=== PATIENT | female | born 1960 | race Caucasian/White ===

== ENCOUNTER → 2021-03-27 11:16 | Outpatient (BNVA) | payer OTHER, SELFPAY | PROVIDERS: PCP Registered Nurse; Visit Provider Registered Nurse | DX: Z00.00 Encounter for general adult medical examination without abnormal findings (principal); Z13.6 Encounter for screening for cardiovascular disorders | CPT/HCPCS: 80053; 80061; 85025 ==

== ENCOUNTER 2021-04-10 13:36 | Outpatient (CLI) | payer OTHER, SELFPAY ==
--- NOTE | 2021-04-10 14:00 | MM_ITS ---
WS: [id number] Bilateral screening digital mammogram, 04/10/2021 Clinical Data: Z12.31 - Encounter for screening mammogram for malignant ... Comparison: None. Findings: The breast parenchymal pattern shows heterogeneous density. No spiculated masses or clustered calcifi cations are seen. There are no secondary signs of carcinoma. Minimal markers are on both breasts. MM/[place] [id number] Impression: 1. Negative bilateral mammogram with no prior exam for review. 2. Recommend annual screening mammograms. BIRADS: 1-Negative FOLLOW UP: 1 Year Follow-up The CAD battery checker was used.
== END 2021-04-10 13:37 | disposition home or self-care (01) ==
LOC: RADSHAW 13:41
PROVIDERS: PCP Registered Nurse; Visit Provider Registered Nurse
DX: Z12.31 Encounter for screening mammogram for malignant neoplasm of breast (principal)
CPT/HCPCS: 77067

== ENCOUNTER → 2022-02-26 10:27 | Outpatient (BNVA) | payer OTHER, SELFPAY | PROVIDERS: PCP Registered Nurse; Visit Provider Registered Nurse | DX: Z00.00 Encounter for general adult medical examination without abnormal findings (principal) | CPT/HCPCS: 80053; 80061; 85025 ==

== ENCOUNTER 2022-04-20 13:35 | Outpatient (CLI) | payer OTHER, SELFPAY ==
--- NOTE | 2022-04-20 14:00 | MM_ITS ---
WS: [id number] BILATERAL 3D TOMOSYNTHESIS DIGITAL SCREENING MAMMOGRAPHY WITH CAD CLINICAL INFORMATION: Z12.31 - Encounter for screening mammogram for malignant ... HISTORY: Screening mammogram. No current complaints. COMPARISON: April 10, 2021 TECHNIQUE: Bilateral CC and MLO views. FINDINGS: The breasts are composed of heterogeneous fibroglandular density tissue, which can limit the detectio n of small underlying mass lesions. No suspicious mass, asymmetry, calcifications, or architectural d istortion. No evidence of malignancy. Punctate calcifications. Vascular calcification. MM/[place] [id number] IMPRESSION: BI-RADS: 2-Benign FOLLOW UP: 1 Year Follow-up Recommend return to annual screening mammography.
== END 2022-04-20 13:36 | disposition home or self-care (01) ==
LOC: RAD 13:37
PROVIDERS: PCP Registered Nurse; Visit Provider Registered Nurse
DX: Z12.31 Encounter for screening mammogram for malignant neoplasm of breast (principal)
CPT/HCPCS: 77063; 77067

== ENCOUNTER 2023-02-03 08:11 | Outpatient (CLI) | payer OTHER, SELFPAY ==
--- NOTE | 2023-02-03 08:15 | US_ITS ---
WS: [id number] ULTRASOUND SOFT TISSUES suprapubic abdominal wall. HISTORY: R22.9 - Localized swelling, mass and lump, unspecified COMPARISON: None available. TECHNIQUE: 2-D and color Doppler imaging is submitted. In the region of clinical concern, LEFT suprapubic location there is a hypoechoic area which does apple ear to peristalse. Suspicious for an abdominal wall hernia which changes size. There is no obstructio n. IMPRESSION: 1. Palpable area along the anterior LEFT suprapubic abdominal wall appears to be a hernia containing a peristalsing loop of bowel. Recommend follow-up CT pelvis for more definitive evaluation.
== END 2023-02-03 08:12 | disposition home or self-care (01) ==
PROVIDERS: PCP Registered Nurse; Visit Provider Registered Nurse
DX: R19.04 Left lower quadrant abdominal swelling, mass and lump (principal)
CPT/HCPCS: 76882

== ENCOUNTER → 2023-04-07 09:42 | Day surgery (SDC) | payer MEDICARE, OTHER, SELFPAY ==
[2023-04-07] VITALS (11 sets, daily range): BP systolic 134–148; BP diastolic 60–91; PULSE 64–88; RESP 16–20; TEMP 36.1–36.8; O2SAT 96–99; BMI 26.2
--- NOTE | 2023-04-07 06:37 | P.HP_ITS ---
Same Day Surgery H&P Indication for Procedure/HPI DATE OF PROCEDURE: April 07, 2023 CHIEF COMPLAINT/INDICATIONFOR SURGICAL PROCEDURE: left inguinal hernia PREOP DIAGNOSIS: left inguinal hernia PLANNED PROCEDURE: Operation Date: 04/07/23 11:25 Proposed Procedures p 27194 lap poss open left inguinal hernia 26747,K40.9(Left) - Papi Paige MD Medications/Allergies* Home Medications Medication Instructions Recorded Confirmed Type No Known Home Medications 03/27/21 04/06/23 History Allergies/Adverse Reactions Allergy/AdvReac Type Severity Reaction Status Date / Time povidone-iodine Allergy Unknown Verified 02/09/23 09:55 [From Betadine] Pertinent History/Comorbid Conditions* Medical History (Updated 02/09/23 @ 11:36 by Papi Paige MD) Family history of breast cancer in sister Family History (Updated 02/26/22 @ 09:16 by Mary Roth LPN) Sister Heart disease Father Cancer Sister breast cancer Social History Smoking and tobacco/nicotine status: current every day tobacco/nicotine user e- cigarettes E-Cigarette Details: vaporizer device and with nicotine Alcohol intake: never Substance/Drug Use: never Adopted: No Caregiver/support person: No Lives independently: No Household members: spouse Marital status: service: No Current occupational status: retired Sexually active: Yes Do you think of yourself as: Straight/Heterosexual Current gender identity: Female Pertinent Exam Findings alert, oriented x 3, clear to auscultation bilaterally, regular rate & rhythm and operative site marked Recommendations Surgery/Procedure today Coding Level of Care Code Acute Code for Chg Fwd Diagnoses
--- NOTE | 2023-04-07 10:17 | ECG_ITS ---
[facility] Test Date: 2023-04-07 Pat Name: Steffi Vela Department: Room: Gender: Female [employer]aking [employer] Worker: : 1960 Requested By: Parth Hernandez Order Number: [id number] Tung MD: Xin Crawford M.D. Measurements Intervals [place] Rate: 70 P: 66 AL: 175 QRS: 29 QRSD: 82 T: 51 QT: 390 QTc: 421 Interpretive Statements SINUS RHYTHM No previous ECG available for comparison Electronically Signed On 04-08-2023 0:50:58 [employer]IST[employer]ORNEY [employer]AL by Xin Crawford M.D. [id number]
[2023-04-07] MEDS: midazolam 1 mg/mL INJ 2 mL 2 MG IVP (11:07)
[2023-04-07] MEDS: scopolamine 1.5 Patch 1 PATCH TRANSDERMA (11:17)
[2023-04-07] MEDS: ceFAZolin 2,000 MG in sodium chloride 0.9% (plus) 50 ML 100 MG IV (12:35)
--- NOTE | 2023-04-07 13:33 | ANES.PREANE2 ---
Pre-Anesthetic Assessment Height/Weight: Height 1.63 m Weight 69.4 kg Temp Pulse Resp BP Pulse Ox O2 Del Method 98.2 F 73 18 148/74 96 Room Air 04/07/23 10:03 04/07/23 10:03 04/07/23 10:03 04/07/23 10:03 04/07/23 10:03 04/07/23 10:08 Preop Diagnosis: left inguinal hernia Operation Date: 04/07/23 11:25 Proposed Procedures p 54626 lap poss open left inguinal hernia 75964,K40.9(Left) - Papi Paige MD Familial anesthetic complications: none Was Beta Carol taken within 24 hours: N/A Was Clonidine taken within 24 hours: N/A Last intake: Intake Last Liquid Date 04/07/23 Last Liquid Time 03:00 Last Solid Date 04/06/23 Last Solid Time 19:30 Social Tobacco (vapes) and No alcohol Exam alert, oriented x 3, clear to auscultation bilaterally and regular rate & rhythm Airway Submandibular: within normal limits Cervical ROM: within normal limits Mallampati: Class II Dentition: full GI Gastroesophageal Reflux Disease Anesthetic Plan ASA status: 2 Anesthesia: General Medications/Allergies Home Medications Medication Instructions Recorded Confirmed Last Taken Type No Known Home Medications 03/27/21 04/06/23 Unknown History Allergies Allergy/AdvReac Type Severity Reaction Status Date / Time povidone-iodine Allergy Unknown Verified 02/09/23 09:55 [From Betadine] Current Medications Generic Name Dose Route Start Last Admin Trade Name Freq PRN Reason Stop Dose Admin Midazolam HCl 2 mg 04/07/23 09:47 04/07/23 11:07 Midazolam 1 Mg/Ml Inj 2 Ml IVP 2 mg ONCE PRN Administration Preop Anxiety FOR[facility], [facility] Anesthesia Medical History Family history of breast cancer in sister Family History Father Heart disease Sister Cancer breast cancer Social History Smoking and tobacco/nicotine status: current every day tobacco/nicotine user e-cigarettes E-Cigarette Details: vaporizer device and with nicotine Alcohol intake: never Substance/Drug Use: never Adopted: No Caregiver/support person: No Lives independently: No Household members: spouse Marital status: service: No Current occupational status: retired Sexually active: Yes Do you think of yourself as: Straight/Heterosexual Current gender identity: Female Data Anesthesia Cardiac Studies: No Data to Display
[2023-04-07] MEDS: lidocaine-epi 1% PF 1:200,000 30 mL SDV INJECTION (14:53)
[2023-04-07] MEDS: BUPivacaine 0.25% INJ 10 mL INJECTION (14:53)
--- NOTE | 2023-04-07 15:10 | P.OP_ITS ---
Operative Report Date of procedure: April 07, 2023 Pre-op diagnosis: Left inguinal hernia Post-op diagnosis: Indirect left inguinal hernia Procedure done: Laparoscopic converted to open left inguinal hernia repair with mesh Implants: Bard polypropylene mesh Surgeon: Papi Paige MD Community Health Educator: MARIA E OR Staff Estimated blood loss: 10cc Complications: Difficult airway due to supraglottic lesions. Need to conversion to open procedure, as preperitoneal space was obliterated from previous lower abdomen surgery. Findings: Indirect left inguinal hernia Brief History: Is a 63-year-old female with previous history of lower abdomen surgery including and hysterectomy who presents with the left inguinal hernia. After discussion of risk and benefits as documented in my office visit we decided to proceed with laparoscopic possible open left inguinal hernia repair with mesh. Procedure: Patient was brought into the OR. She was placed in a supine position. General esthesia was given. During intubation it was noted that patient had very large tonsils with a possible tonsillar mass on the right side, making intubation extremely difficult. After patient was successfully intubated the abdomen was prepped and draped in the usual sterile fashion. Timeout was conducted. An infraumbilical incision measuring 1.5 cm was made and deepened to the level of the anterior rectus sheath, the anterior rectus sheath was opened and the muscle was retracted lateral to reveal the posterior rectus sheath. A Spacemaker was carefully advanced on top of the posterior rectus sheath into the preperitoneal space, the balloon was inflated under direct visualization and at that moment was noted that there was evidence of loss of the tissue planes with violation of the peritoneum, this is likely due to previous lower abdominal surgery via Pfannenstiel incision. Therefore the balloon was deflated and removed and we decided to proceed with an open procedure. 5 cm incision was made on the left groin, the incision was deepened until the external oblique aponeurosis was identified. The external oblique aponeurosis was opened from the level of the external inguinal ring to the area overlying the internal ring, this was done taking great consideration of nerve injury with a low inguinal nerve. Careful blunt dissection was done to encircle the contents of the inguinal canal, the round ligament and hernia sac was encircled and the Pilar drain. During this process the ilioinguinal nerve and the genitofemoral nerve were identified and preserved. I then proceeded with blunt dissection of the round ligament from the hernia sac, the hernia sac was dissected all the way down to the internal inguinal ring and subsequently reduced. No evidence of lipoma of the cord was noted. Once dissection was completed I evaluated the floor of the inguinal canal for evidence of possible direct component, no evidence of direct component was noted. I also asked the anesthesia team to provide Valsalva maneuver and reevaluated the groin in order to evaluate for possible femoral component, there was no evidence of femoral component and therefore I did not open the floor of the inguinal canal. At this point I proceeded to place the mesh on the floor of the inguinal canal, the mesh was fixed with #2-0 Prolene to the pubic tubercle medially, shelving edge of the inguinal ligament on the inferior direction, conjoined tendon on the superior aspect and the tails of the mesh were joined together encircling the round ligament and recreating the internal ring on the lateral aspect. This was done with great care of not injuring the nerves of the inguinal canal., The wound was irrigated with saline. I then proceeded to close the external oblique aponeurosis with #2-0 Vicryl. The groin was closed in layers using #3-0 Vicryl for Lexi's and subcutaneous tissue and #4-0 Monocryl for the skin. I then placed my attention to the periumbilical wound, the anterior rectus sheath was closed with #0 Vicryl and the skin was closed with #4-0 Monocryl. At the end of the procedure all counts were correct. The patient tolerated well the procedure, was extubated without complications and was transferred to the PACU in stable condition.
[2023-04-07] MEDS: diphenhydrAMINE 50 mg/mL SDV 1mL 12.5 MG IVP (15:40)
[2023-04-07] MEDS: ondansetron 2 mg/ML SDV 2 mL 4 MG IVP (15:40)
[2023-04-07] MEDS: oxyCODONE 5 mg IR Tab/Cap PO (16:09)
--- NOTE | 2023-04-07 17:41 | ANE.PACU2 ---
Inpatient post-anesthesia follow up: Airway intact: Yes (Very sore throat) Vital signs: Temperature 97.6 F Pulse Rate 64 Respiratory Rate 18 Blood Pressure 146/68 Pulse Oximetry 98 Oxygen Delivery Me thod Room Air Oxygen Flow Rate Fraction of Inspir ed Oxygen Hydration adequate: Yes Nausea and vomiting: No Pain level: 3 Mental status: Baseline Additional Comments: Discussed findings on intubation of multiple friable pharyngeal masses. Intubation moderately difficult from bleeding of masses and anterior airway.
== END | disposition home or self-care (01) ==
PROVIDERS: PCP Registered Nurse; Visit Provider Surgery
PROC: (CPT 49650; principal; 2023-04-07 11:15)
DX: K40.90 Unilateral inguinal hernia, without obstruction or gangrene, not specified as recurrent (principal); Z53.31 Laparoscopic surgical procedure converted to open procedure; Z98.891 History of uterine scar from previous surgery; Z90.710 Acquired absence of both cervix and uterus; F17.290 Nicotine dependence, other tobacco product, uncomplicated; Z80.3 Family history of malignant neoplasm of breast
CPT/HCPCS: 49505; 51702; 93005; C1781; J0690; J1100; J1200; J2250; J2405; J2704; J2710; J3010; J3490

== ENCOUNTER → 2023-04-19 09:11 | Outpatient (BNVA) | payer MEDICARE, OTHER, SELFPAY | PROVIDERS: PCP Registered Nurse; Visit Provider Surgery | DX: Z98.890 Other specified postprocedural states (principal) | CPT/HCPCS: 99024 ==

== ENCOUNTER → 2024-10-12 11:03 | Outpatient (BNVA) | payer MEDICARE, OTHER, SELFPAY | PROVIDERS: PCP Registered Nurse; Visit Provider Registered Nurse | DX: Z13.6 Encounter for screening for cardiovascular disorders (principal) | CPT/HCPCS: 80053; 80061; 85025 ==

== ENCOUNTER 2024-10-16 13:45 | Outpatient (CLI) | payer MEDICARE, OTHER, SELFPAY ==
--- NOTE | 2024-10-16 14:00 | MM_ITS ---
WS: [id number] BILATERAL 3D TOMOSYNTHESIS DIGITAL SCREENING MAMMOGRAPHY WITH CAD CLINICAL INFORMATION: Z12.31 - Encounter for screening mammogram for malignant ... HISTORY: Screening mammogram. No current complaints. COMPARISON: 2021 TECHNIQUE: Bilateral CC and MLO views. FINDINGS: The breasts are composed of heterogeneous fibroglandular density tissue, which can limit the detection of small underlying mass lesions. No suspicious mass, asymmetry, calcifications, or architectural distortion. No evidence of malignancy. Vascular calcification. MM/MM [facility] tomosynthesis [id number] IMPRESSION: DENSITY: The breasts are heterogeneously dense, which may obscure small masses. BI-RADS: 2 - Benign FOLLOW UP: 1 Year Follow-up Recommend return to annual screening mammography.
== END 2024-10-16 13:46 | disposition home or self-care (01) ==
LOC: RAD 13:46
PROVIDERS: PCP Registered Nurse; Visit Provider Registered Nurse
DX: Z12.31 Encounter for screening mammogram for malignant neoplasm of breast (principal); R92.333 Mammographic heterogeneous density, bilateral breasts; R92.1 Mammographic calcification found on diagnostic imaging of breast
CPT/HCPCS: 77063; 77067